=== PATIENT | male | born 1985 | race Caucasian/White ===

== ENCOUNTER 2017-10-01 09:20 | Emergency (ER) | payer OTHER ==
--- NOTE | 2017-10-01 10:36 | EDM.PDOC ---
ED HPI GENERAL MEDICAL PROBLEM - General Chief Complaint: ENT Problem Stated Complaint: Nasal congestion Time Seen by Provider: 10/01/17 09:45 Source of Information: Reports: Patient History Limitations: Reports: No Limitations - History of Present Illness INITIAL COMMENTS - FREE TEXT/NARRATIVE: 31 YO WM presents to ER complaining of chronic nasal congestion with facial pain and episode of dizziness that lasted for approx 30 seconds. Pt reports he has chronic nasal congestion but denies any allergies. Pt states when he blows his nose the mucous is blood tinged. Pt denies any fever/chills, no nausea/ vomiting, no chest pain or shortness of breath. Onset: Today Duration: Chronic Location: Reports: Face Quality: Reports: Ache Severity: Mild Improves with: Reports: None Worsens with: Reports: None Associated Symptoms: Denies: Cough, cough w sputum, Fever/Chills, Headaches, Nausea/Vomiting, Shortness of Breath - Related Data Allergies Allergy/AdvReac Type Severity Reaction Status Date / Time No Known Drug Allergies Allergy Cannot Verified 10/01/17 09:45 Remember Home Meds: Home Meds Amoxicillin/Clavulanate K [Augmentin 875-125 MG] 1 tab PO BID 9 Days #18 tablet 10/01/17 [Rx] Cetirizine [ZyrTEC] 10 mg PO DAILY #30 tab 10/01/17 [Rx] Oxymetazoline HCl [Afrin] 2 spray NS BID 3 Days spray 10/01/17 [Rx] Past Medical History Respiratory History: Reports: Asthma Neurological History: Reports: Migraines Psychiatric History: Reports: Anxiety, Depression, Panic Attack Dermatologic History: Reports: Other (See Below) Other Dermatologic History: chronic cellulitis due to chronic boils - Infectious Disease History Infectious Disease History: Reports: Chicken Pox - Past Surgical History Respiratory Surgical History: Reports: None Neurological Surgical History: Reports: None Dermatological Surgical History: Reports: None Social & Family History - Tobacco Use Smoking Status *Q: Current Every Day Smoker Years of Tobacco use: 13 Packs/Tins Daily: 0.5 Used Tobacco, but Quit: No Second Hand Smoke Exposure: Yes - Caffeine Use Caffeine Use: Reports: Coffee - Recreational Drug Use Recreational Drug Use: No ED ROS ENT - Review of Systems Review Of Systems: See Below Constitutional: Reports: No Symptoms HEENT: Reports: Nose Pain, Rhinitis, Sinus Problem. Denies: Ear Discharge, Ear Pain, Eye Discharge, Eye Pain, Throat Pain, Throat Swelling, Vertigo, Vision Change Respiratory: Reports: No Symptoms Cardiovascular: Reports: No Symptoms Endocrine: Reports: No Symptoms GI/Abdominal: Reports: No Symptoms : Reports: No Symptoms Musculoskeletal: Reports: No Symptoms Skin: Reports: No Symptoms Neurological: Reports: No Symptoms Psychiatric: Reports: No Symptoms Hematologic/Lymphatic: Reports: No Symptoms Immunologic: Reports: No Symptoms ED EXAM, ENT - Physical Exam Exam: See Below Exam Limited By: No Limitations General Appearance: Alert, WD/WN, No Apparent Distress Ears: Normal External Exam, Normal Canal, Hearing Grossly Normal, Normal TMs Nose: Nasal Tenderness. No: Active Bleeding Mouth/Throat: Normal Inspection, Normal Gums, Normal Lips, Normal Oropharynx, Normal Teeth Head: Atraumatic, Normocephalic, Sinus Tenderness (frontal sinus) Neck: Normal Inspection, Supple, Non-Tender, Full Range of Motion Respiratory/Chest: No Respiratory Distress, Lungs Clear, Normal Breath Sounds, No Accessory Muscle Use, Chest Non-Tender Cardiovascular: Normal Peripheral Pulses, Regular Rate, Rhythm, No Edema, No Gallop, No JVD, No Murmur, No Rub GI/Abdominal: Normal Bowel Sounds, Soft, Non-Tender, No Organomegaly, No Distention, No Abnormal Bruit, No Mass Back: Normal Inspection, Full Range of Motion Extremities: Normal Inspection, Normal Range of Motion, Non-Tender, No Pedal Edema, Normal Capillary Refill Neurological: Alert, Oriented, CN II-XII Intact, Normal Cognition, Normal Gait, Normal Reflexes, No Motor/Sensory Deficits Psychiatric: Normal Affect, Normal Mood Skin: Warm, Dry, Intact, Normal Color, No Rash Lymphatic: No Adenopathy Course - Vital Signs Last Recorded V/S: Last Vital Signs Temp 36.6 C 10/01/17 09:42 Pulse 75 10/01/17 09:42 Resp 18 10/01/17 09:42 BP 119/74 10/01/17 09:42 Pulse Ox 96 10/01/17 09:42 Departure - Departure Time of Disposition: 10:45 Disposition: Home, Self-Care 01 Condition: Good Clinical Impression: Sinusitis Qualifiers: Sinusitis location: frontal Chronicity: acute Recurrence: recurrent Qualified Code(s): J01.11 - Acute recurrent frontal sinusitis - Discharge Information Prescriptions: Amoxicillin/Clavulanate K [Augmentin 875-125 MG] 1 tab PO BID 9 Days #18 tablet Cetirizine [ZyrTEC] 10 mg PO DAILY #30 tab Oxymetazoline HCl [Afrin] 2 spray NS BID 3 Days spray Instructions: Sinusitis, Adult, [id number] Referrals: PCP,Unknown [Primary Care Provider] - Juan Antonio Cuenca MD [Physician] - - Assessment/Plan Assessment:: 1. Acute on Chronic Sinusitis Plan: 1. discharge home 2. augmentin 875mg PO BID x 10 days 3. zyrtec 10mg PO QD 4. Afrin NS BID x 3 days 5. follow up with PCP for further evaluation and treatment 6. Return to ER for worsening symptoms
[2017-10-01] MEDS ORDERED: Cetirizine 10 MG Tab PO SCH (10:45)
[2017-10-01] MEDS ORDERED: Amoxicillin/Clavulanate K 875-125 MG Tab PO SCH (10:45)
== END 2017-10-01 11:22 | disposition home or self-care (01) ==
LOC: KA.ED 09:20
DX: J01.11 Acute recurrent frontal sinusitis (principal); F17.210 Nicotine dependence, cigarettes, uncomplicated; Z79.899 Other long term (current) drug therapy
CPT/HCPCS: 99283; A9270-GY

== ENCOUNTER 2017-10-15 19:07 | Emergency (ER) | payer MEDICAID ==
--- NOTE | 2017-10-15 20:01 | EDM.PDOC ---
ED HPI GENERAL MEDICAL PROBLEM - General Chief Complaint: Gastrointestinal Problem Stated Complaint: BLOOD IN STOOL Time Seen by Provider: 10/15/17 19:54 Source of Information: Reports: Patient History Limitations: Reports: No Limitations - History of Present Illness INITIAL COMMENTS - FREE TEXT/NARRATIVE: Patient is a 31-year-old gentleman who presents to the emergency department this evening with a complaint of blood in stool and abdominal cramping. Patient states symptoms began yesterday and he had cramping prior to bowel movement, then noticed blood in toilet bowl and on toilet paper. Patient states he had several bowel movements today and also noticed blood on toilet paper. Abdominal cramping only occurs just prior to bowel movement. Patient denies fever, chest pain, shortness of breath, out of country travel, nausea, vomiting, or family members with similar symptoms. Patient had just finished Augmentin antibiotic regimen on 10/12 for upper respiratory infection, and was seen by Dr. Stinson on . Patient did not complain to Dr. Stinson about current issue at that time. Onset Date: 10/14/17 Duration: Day(s): Location: Reports: Abdomen Quality: Reports: Other (Cramping) Improves with: Reports: Other (Defecation) Worsens with: Reports: None Associated Symptoms: Reports: No Other Symptoms - Related Data Allergies Allergy/AdvReac Type Severity Reaction Status Date / Time No Known Drug Allergies Allergy Cannot Verified 10/15/17 19:31 Remember Home Meds: Home Meds Cetirizine [ZyrTEC] 10 mg PO DAILY #30 tab 10/01/17 [Rx] Oxymetazoline HCl [Afrin] 2 spray NS BID 3 Days spray 10/01/17 [Rx] Prednisone [IMW: predniSONE] 60 mg PO DAILY 10/15/17 [History] Past Medical History HEENT History: Reports: Sinusitis Respiratory History: Reports: Asthma Neurological History: Reports: Migraines Psychiatric History: Reports: ADHD, Anxiety, Depression, Panic Attack Dermatologic History: Reports: Cellulitis, Other (See Below) Other Dermatologic History: chronic cellulitis due to chronic boils - Infectious Disease History Infectious Disease History: Reports: Chicken Pox - Past Surgical History Respiratory Surgical History: Reports: None Neurological Surgical History: Reports: None Dermatological Surgical History: Reports: None Social & Family History - Tobacco Use Smoking Status *Q: Current Every Day Smoker Years of Tobacco use: 12 Packs/Tins Daily: 1 Used Tobacco, but Quit: No Tobacco Use Comment: Pt reports smoking 2-3 cigarettes daily. Second Hand Smoke Exposure: No - Caffeine Use Caffeine Use: Reports: Coffee - Recreational Drug Use Recreational Drug Use: No ED ROS GENERAL - Review of Systems Review Of Systems: ROS reveals no pertinent complaints other than HPI. Constitutional: Reports: No Symptoms HEENT: Reports: No Symptoms Respiratory: Reports: No Symptoms Cardiovascular: Reports: No Symptoms Endocrine: Reports: No Symptoms GI/Abdominal: Reports: Abdominal Pain, Hematochezia : Reports: No Symptoms Musculoskeletal: Reports: No Symptoms Skin: Reports: No Symptoms Neurological: Reports: No Symptoms Psychiatric: Reports: No Symptoms Hematologic/Lymphatic: Reports: No Symptoms Immunologic: Reports: No Symptoms ED EXAM, GI/ABD - Physical Exam Exam: See Below Exam Limited By: No Limitations General Appearance: Alert, WD/WN, No Apparent Distress Nose: Normal Inspection, Normal Mucosa, No Blood Throat/Mouth: Normal Inspection, Normal Oropharynx, No Airway Compromise Head: Atraumatic, Normocephalic Respiratory/Chest: No Respiratory Distress, Lungs Clear, Normal Breath Sounds, No Accessory Muscle Use, Chest Non-Tender Cardiovascular: Regular Rate, Rhythm, No Murmur GI/Abdominal Exam: Normal Bowel Sounds, Soft, Tender (Minimally periumbilical) Rectal (Males) Exam: Normal Exam, Normal Rectal Tone, Prostate Normal, Bloody Stool, Heme + Stool. No: Hemorrhoids Back Exam: Normal Inspection. No: CVA Tenderness (L), CVA Tenderness (R) Extremities: Normal Inspection, No Pedal Edema Neurological: Alert, Oriented, Normal Cognition Psychiatric: Normal Affect, Normal Mood Skin Exam: Warm, Dry, Intact, Normal Color, No Rash Lymphatic: No Adenopathy Course - Vital Signs Last Recorded V/S: Last Vital Signs Temp 98.6 F 10/15/17 19:41 Pulse 97 10/15/17 19:41 Resp 20 10/15/17 19:41 BP 130/84 10/15/17 19:41 Pulse Ox 96 10/15/17 19:41 - Orders/Labs/Meds Orders: Active Orders 24 hr Category Date Time Status Hemoccult [OCCULT BLOOD DIAGNOSTIC] [OP] Stat Lab 10/15/17 19:55 Ordered Labs: Laboratory Tests 10/15/17 10/15/17 10/15/17 Range/Units 19:57 19:57 19:57 WBC 7.0 (5.0-10.0) 10^3/uL RBC 4.72 (4.50-6.00) 10^6/uL Hgb 14.4 (13.0-17.0) g/dL Hct 43.4 (40.0-52.0) % MCV 91.8 (82.0-92.0) fL MCH 30.4 (27.0-31.0) pg MCHC 33.2 (32.0-36.0) g/dL RDW 12.6 (11.5-14.5) % Plt Count 239 (150-300) 10^3/uL MPV 8.2 (7.4-10.4) fL Neut % (Auto) 58.3 (50.0-70.0) % Lymph % (Auto) 30.6 (20.0-40.0) % [place] % (Auto) 7.5 (2.0-8.0) % Eos % (Auto) 3.3 H (1.0-3.0) % Baso % (Auto) 0.3 (0.0-1.0) % Neut # (Auto) 4.2 (2.5-7.0) 10^3/uL Lymph # (Auto) 2.1 (1.0-4.0) 10^3/uL [place] # (Auto) 0.5 (0.1-0.8) 10^3/uL Eos # (Auto) 0.2 (0.1-0.3) 10^3/uL Baso # (Auto) 0.0 (0.0-0.1) 10^3/uL PT 9.1 (8.9-11.4) SEC INR 0.9 (0.9-1.1) APTT 26.2 (20.8-31.2) SEC Sodium 141 (136-145) mmol/L Potassium 3.9 (3.3-5.3) mmol/L Chloride 104 (98-115) mmol/L Carbon Dioxide 27.6 (21.0-32.0) mmol/L BUN 17 (6-25) mg/dL Creatinine 0.94 (0.51-1.17) mg/dL Est Cr Clr Drug Dosing 111.17 mL/min Estimated GFR (MDRD) > 60 mL/min Glucose 95 (70-110) mg/dL Calcium 8.7 (8.7-10.3) mg/dL Total Bilirubin 0.3 (0.2-1.0) mg/dL AST 52 H (15-37) U/L ALT 201 H (12-78) U/L Alkaline Phosphatase 57 (46-116) IU/L Total Protein 7.6 (6.4-8.2) g/dL Albumin 4.22 (3.00-4.80) g/dL - Re-Assessments/Exams Free Text/Narrative Re-Assessment/Exam: 10/15/17 20:54 Patient afebrile, nontoxic appearing, vital signs stable. No abdominal pain at this time. Will have patient follow-up with Dr. Stinson tomorrow for consideration of further studies to evaluate source of bleeding. Departure - Departure Time of Disposition: 20:56 Disposition: Home, Self-Care 01 Condition: Good Clinical Impression: Rectal bleeding Gastrointestinal bleed Qualifiers: GI bleed type/associated pathology: unspecified gastrointestinal hemorrhage type Qualified Code(s): K92.2 - Gastrointestinal hemorrhage, unspecified - Discharge Information Instructions: Rectal Bleeding, [id number], Gastrointestinal Bleeding, Easy-to -Read Referrals: Xuan Rush MD [Primary Care Provider] - Forms: ED Department Discharge Additional Instructions: Follow-up with Dr. Stinson in one to 2 days. Return to emergency department sooner if symptoms continue or worsen. - My Orders Last 24 Hours: My Active Orders 10/15/17 19:55 Hemoccult [OCCULT BLOOD DIAGNOSTIC] [OP] Stat - Assessment/Plan Last 24 Hours: My Active Orders 10/15/17 19:55 Hemoccult [OCCULT BLOOD DIAGNOSTIC] [OP] Stat Assessment:: Rectal bleeding Plan: Follow-up with Dr. Stinson tomorrow
[2017-10-15 20:39] LABS: CHLORIDE,CL 104 mmol/L (98-115); SODIUM,NA 141 mmol/L (136-145)
== END 2017-10-15 21:00 | disposition home or self-care (01) ==
LOC: KA.ED 19:07
DX: K62.5 Hemorrhage of anus and rectum (principal); J45.909 Unspecified asthma, uncomplicated; F17.210 Nicotine dependence, cigarettes, uncomplicated; Z79.899 Other long term (current) drug therapy
CPT/HCPCS: 36415; 80053; 85025; 85610; 85730; 99284

== ENCOUNTER 2017-10-19 15:44 | Emergency (ER) | payer MEDICAID ==
--- NOTE | 2017-10-19 16:46 | EDM.PDOC ---
ED HPI GENERAL MEDICAL PROBLEM - General Chief Complaint: General Time Seen by Provider: 10/19/17 16:25 Source of Information: Reports: Patient History Limitations: Reports: No Limitations - History of Present Illness INITIAL COMMENTS - FREE TEXT/NARRATIVE: Patient presents with GI bleeding. This started one week ago and he has been evaluated here in the ER as well as by his PCP in the clinic within this week. Today he thinks the amount of bleeding is a little worse and was worried about it. He left work early after noticing this. He says he hasn't had a bowel movement today but just some bloody mucous. Rectal Pain Score (Numeric/FACES): 7 - Related Data Allergies Allergy/AdvReac Type Severity Reaction Status Date / Time No Known Drug Allergies Allergy Cannot Verified 10/19/17 15:51 Remember Home Meds: Home Meds Cetirizine [ZyrTEC] 10 mg PO DAILY #30 tab 10/01/17 [Rx] Past Medical History HEENT History: Reports: Sinusitis Respiratory History: Reports: Asthma Neurological History: Reports: Migraines Psychiatric History: Reports: ADHD, Anxiety, Depression, Panic Attack Dermatologic History: Reports: Cellulitis, Other (See Below) Other Dermatologic History: chronic cellulitis due to chronic boils - Infectious Disease History Infectious Disease History: Reports: Chicken Pox - Past Surgical History Respiratory Surgical History: Reports: None Neurological Surgical History: Reports: None Dermatological Surgical History: Reports: None Social & Family History - Tobacco Use Smoking Status *Q: Current Every Day Smoker Years of Tobacco use: 12 Packs/Tins Daily: 1 Used Tobacco, but Quit: No Second Hand Smoke Exposure: Yes - Caffeine Use Caffeine Use: Reports: Coffee, Energy Drinks, Tea - Recreational Drug Use Recreational Drug Use: Yes Drug Use in Last 12 Months: No Recreational Drug Type: Reports: Cocaine, Methamphetamine, Other (see below) Other Recreational Drug Type: pain pills ED ROS GENERAL - Review of Systems Review Of Systems: See Below Constitutional: Denies: Fever, Weakness HEENT: Reports: No Symptoms Respiratory: Denies: Shortness of Breath Cardiovascular: Denies: Chest Pain, Lightheadedness, Syncope GI/Abdominal: Reports: Bloody Stool. Denies: Abdominal Pain, Black Stool, Vomiting : Reports: No Symptoms Musculoskeletal: Reports: No Symptoms Skin: Denies: Cyanosis, Jaundice, Mottled, Pallor, Diaphoresis Neurological: Reports: No Symptoms Psychiatric: Denies: Agitation, Anxiety, Confusion Hematologic/Lymphatic: Denies: Anemia, Easy Bleeding (no bleeding/clotting disorders; no blood thinners) ED EXAM, GENERAL - Physical Exam Exam: See Below Exam Limited By: No Limitations General Appearance: Alert, WD/WN, No Apparent Distress Eye Exam: Bilateral Eye: EOMI, Normal Inspection, PERRL Ears: Normal External Exam, Hearing Grossly Normal Throat/Mouth: Normal Inspection, Normal Lips, Normal Voice, No Airway Compromise. No: Perioral Cyanosis Head: Atraumatic, Normocephalic Neck: Full Range of Motion Respiratory/Chest: No Respiratory Distress, Lungs Clear, Normal Breath Sounds, No Accessory Muscle Use Cardiovascular: Regular Rate, Rhythm, No Murmur Rectal (Males) Exam: Deferred (this was done a few days ago in the ER with results: positive hemoccult, normal prostate, no hemorrhoids.) Extremities: Normal Inspection, Normal Range of Motion, Normal Capillary Refill Neurological: Alert, Oriented, Normal Cognition, No Motor/Sensory Deficits Psychiatric: Normal Affect, Normal Mood Skin Exam: Warm, Dry, Intact, Normal Color, No Rash. No: Cyanosis, Pallor Course - Vital Signs Last Recorded V/S: Last Vital Signs Temp 97.2 F 10/19/17 15:46 Pulse 102 H 10/19/17 15:46 Resp 18 10/19/17 15:46 BP 140/91 H 10/19/17 15:46 Pulse Ox 98 10/19/17 15:46 - Orders/Labs/Meds Labs: Laboratory Tests 10/19/17 Range/Units 16:00 WBC 6.4 (5.0-10.0) 10^3/uL RBC 4.77 (4.50-6.00) 10^6/uL Hgb 14.5 (13.0-17.0) g/dL Hct 43.4 (40.0-52.0) % MCV 90.9 (82.0-92.0) fL MCH 30.3 (27.0-31.0) pg MCHC 33.4 (32.0-36.0) g/dL RDW 12.7 (11.5-14.5) % Plt Count 255 (150-300) 10^3/uL MPV 8.4 (7.4-10.4) fL Neut % (Auto) 60.7 (50.0-70.0) % Lymph % (Auto) 27.3 (20.0-40.0) % [place] % (Auto) 6.1 (2.0-8.0) % Eos % (Auto) 5.4 H (1.0-3.0) % Baso % (Auto) 0.5 (0.0-1.0) % Neut # (Auto) 4.0 (2.5-7.0) 10^3/uL Lymph # (Auto) 1.7 (1.0-4.0) 10^3/uL [place] # (Auto) 0.4 (0.1-0.8) 10^3/uL Eos # (Auto) 0.3 (0.1-0.3) 10^3/uL Baso # (Auto) 0.0 (0.0-0.1) 10^3/uL - Re-Assessments/Exams Free Text/Narrative Re-Assessment/Exam: 10/19/17 16:52 Discussed findings and expectations with patient. His colonoscopy is scheduled for 11/07/17. He doesn't have a car so cannot travel easily to another town for this and also needs to schedule two weeks in advance with his work. We offered to try to find options of getting a colonoscopy done sooner but he decided that keeping his current appointment will probably be best. I discussed with him that without knowing the source of his bleeding there isn't anything we can do today in the ER. I assured him that he is not anemic (hemoglobin is normal today). We discussed that he should return to ER if bleeding becomes severe or he is concerned that he might need a blood transfusion. Pt information on GI bleeding was also given to him at discharge. Pt discharged to home in stable condition. Departure - Departure Time of Disposition: 16:38 Disposition: Home, Self-Care 01 Condition: Good Clinical Impression: GI bleeding Qualifiers: GI bleed type/associated pathology: unspecified gastrointestinal hemorrhage type Qualified Code(s): K92.2 - Gastrointestinal hemorrhage, unspecified - Discharge Information Instructions: Gastrointestinal Bleeding, [id number] Referrals: Xuan Rush MD [Primary Care Provider] - Forms: ED Department Discharge Additional Instructions: 1. Drink 8 cups of water daily. 2. Call or follow up with your PCP if any questions, problems or worsening. 3. Keep the colonoscopy as scheduled as this should find the source of the bleeding.
== END 2017-10-19 16:45 | disposition home or self-care (01) ==
LOC: KA.ED 15:44
DX: K92.2 Gastrointestinal hemorrhage, unspecified (principal); J45.909 Unspecified asthma, uncomplicated; F17.210 Nicotine dependence, cigarettes, uncomplicated; Z79.899 Other long term (current) drug therapy
CPT/HCPCS: 36415; 85025; 99283

== ENCOUNTER 2017-11-07 13:51 | Day surgery (SDC) | payer MEDICAID ==
[~2017-11-07 13:51] MED LIST: Propofol 200 MG/20 ML SDV IV ONE; Propofol 200 MG/20 ML SDV ONE
[2017-11-07] MEDS ORDERED: Sodium Chloride 0.9% 5 ML Syringe FLUSH PRN (14:30)
[2017-11-07] MEDS ORDERED: Lactated Ringers 1,000 ML IV SCH (14:30)
--- NOTE | 2017-11-07 15:34 | PCM.PN ---
- General Info Date of Service: 11/07/17 - Review of Systems Systems Review Comment:: 32-year-old male referred for colonoscopy. He has a approximately 1 month history of intermittent rectal bleeding. There is been mucus associated with this sometimes. He is also been having some intermittent abdominal pain. He is medically stable to proceed today with no recent significant changes in his health status since his history and physical which is reviewed. I have discussed the proposed colonoscopy with the patient. Risks such as but not limited to bleeding and GI injury reviewed. He appears to understand and agrees to proceed. - Patient Data Vitals - Most Recent: Last Vital Signs Temp 98.1 F 11/07/17 14:22 Pulse 70 11/07/17 14:22 Resp 16 11/07/17 14:22 BP 110/74 11/07/17 14:22 Pulse Ox 96 11/07/17 14:22 Weight - Most Recent: 78.018 kg Med Orders - Current: Current Medications Lactated Ringer's (Ringers, Lactated) 1,000 mls @ 50 mls/hr IV ASDIRECTED AKIL Last Admin: 11/07/17 14:40 Dose: 50 mls/hr Sodium Chloride (Syrex Flush) 5 ml FLUSH Q8HR PRN PRN Reason: Keep Vein Open Discontinued Medications Propofol (Diprivan 20 Ml) Confirm Administered Dose 400 mg .ROUTE .STK-MED ONE Stop: 11/07/17 13:45 - Problem List Review Problem List Initiated/Reviewed/Updated: Yes - My Orders Last 24 Hours: My Active Orders 11/07/17 14:30 Patient to Empty Bladder [RC] ASDIRECTED Peripheral IV Care [RC] . DIRECTED Verify Patient Consent Obtain [RC] ASDIRECTED Lactated Ringers [Ringers, Lactated] 1,000 ml IV ASDIRECTED Sodium Chloride 0.9% [Syrex Flush] 5 ml FLUSH Q8HR PRN Peripheral IV Insertion Adult [OM.PC] Routine 11/07/17 Breakfast Nothing Per Oral Diet [DIET] - Assessment Assessment:: Rectal bleeding - Plan Plan:: Colonoscopy
--- NOTE | 2017-11-07 16:02 | PCM.OPNOTE ---
- General Post-Op/Procedure Note Date of Surgery/Procedure: 11/07/17 Operative Procedure(s): Colonoscopy Findings: Normal colon and terminal ileum Pre Op Diagnosis: Rectal bleeding Post-Op Diagnosis: Normal colon Anesthesia Technique: MAC Primary Surgeon: Shiva Dover Pathology: none Output, Urine Amount: 0 EBL in mLs: 0 Complications: None Condition: Good
--- NOTE | 2017-11-08 01:29 | OR ---
DATE OF SURGERY: 11/07/2017 SURGEON: Shiva Dover MD PREOPERATIVE DIAGNOSIS: Diagnosis rectal bleeding. POSTOPERATIVE DIAGNOSIS: Normal colon. OPERATION PERFORMED: Colonoscopy. INDICATIONS FOR SURGERY: This is a 32-year-old male, he has a history of rectal bleeding over the past 3 to 4 weeks. This has also been associated with some intermittent abdominal pain. FINDINGS: The patient's colon and rectum appeared normal. No signs of inflammation or abnormal appearing mucosa are seen during the exam. No significant hemorrhoids are identified. The terminal ilium also appeared normal. No areas showed any visible signs of inflammation. PROCEDURE: The patient was taken to the operating room. He was given intravenous sedation, and with him in the left lateral decubitus position, digital rectal exam was performed showing no rectal masses. The Olympus colonoscope was inserted into the rectum. The retroflexed examination of the rectal canal was performed. The scope was then carefully advanced under direct visualization through the entire length of the colon until the cecum was reached. Cecal acquisition was confirmed by noting the normal internal cecal anatomy including the appendiceal orifice and ileocecal valve. The ileocecal valve was cannulated and the terminal ilium was examined and also appeared normal. The scope was then slowly withdrawn sequentially re-examining the colonic segments until the entire colon and rectum had been fully examined. The scope was then removed, and the patient was taken from the operating room in satisfactory condition. ESTIMATED BLOOD LOSS: Zero. COMPLICATIONS: None. PROGNOSIS: Good. /[id number]/MODL
== END 2017-11-07 17:10 | disposition home or self-care (01) ==
LOC: KA.SDS 13:51
PROVIDERS: ATTEND Surgery
DX: K62.5 Hemorrhage of anus and rectum (principal); Z79.899 Other long term (current) drug therapy
CPT/HCPCS: J2704; J7120

== ENCOUNTER 2018-02-23 09:22 | Emergency (ER) | payer BC ==
--- NOTE | 2018-02-23 10:09 | EDM.PDOC ---
ED HPI GENERAL MEDICAL PROBLEM - General Chief Complaint: Genitourinary Problem Stated Complaint: UNKNOWN Time Seen by Provider: 02/23/18 09:32 Source of Information: Reports: Patient History Limitations: Reports: No Limitations - History of Present Illness INITIAL COMMENTS - FREE TEXT/NARRATIVE: Patient is a 32-year-old gentleman who presents to the emergency department this morning with a complaint of right testicular pain. Patient underwent vasectomy on 02/15/[address] Cuenca. Patient states that pain has gradually increased and was seen at the [facility] on Monday. Patient was given pain medicine at that time. Discomfort persists so he presented to the emergency department. Patient denies any recent trauma to that area, dysuria, abdominal pain, fever, nausea, vomiting, bowel changes. Onset: Gradual Duration: Day(s): Location: Reports: Other (Right testicle) Quality: Reports: Ache Severity: Moderate Improves with: Reports: None Worsens with: Reports: None Context: Reports: Other (Status post vasectomy) Associated Symptoms: Reports: No Other Symptoms - Related Data Allergies Allergy/AdvReac Type Severity Reaction Status Date / Time No Known Drug Allergies Allergy NKDA Verified 11/07/17 14:02 Home Meds: Home Meds . [No Known Home Meds] 11/07/17 [History] Past Medical History HEENT History: Reports: Sinusitis Respiratory History: Reports: Asthma Gastrointestinal History: Reports: GI Bleed Musculoskeletal History: Reports: Back Pain, Chronic, Fracture Neurological History: Reports: Concussion, Head Trauma, Migraines Psychiatric History: Reports: ADHD, Addiction, Depression, Learning Disability, Panic Attack, Psych Hospitalization(s), Suicide Attempt Dermatologic History: Reports: Cellulitis Other Dermatologic History: chronic cellulitis due to chronic boils - Infectious Disease History Infectious Disease History: Reports: Chicken Pox, Influenza - Past Surgical History Respiratory Surgical History: Reports: None Neurological Surgical History: Reports: None Dermatological Surgical History: Reports: None Social & Family History - Family History Family Medical History: Noncontributory - Caffeine Use Caffeine Use: Reports: Coffee ED ROS GENERAL - Review of Systems Review Of Systems: ROS reveals no pertinent complaints other than HPI. Constitutional: Reports: No Symptoms HEENT: Reports: No Symptoms Respiratory: Reports: No Symptoms Cardiovascular: Reports: No Symptoms Endocrine: Reports: No Symptoms GI/Abdominal: Reports: No Symptoms : Reports: Other (Right testicular pain and swelling) Musculoskeletal: Reports: No Symptoms Skin: Reports: No Symptoms Neurological: Reports: No Symptoms Psychiatric: Reports: No Symptoms Hematologic/Lymphatic: Reports: No Symptoms Immunologic: Reports: No Symptoms ED EXAM, RENAL/ - Physical Exam Exam: See Below Exam Limited By: No Limitations General Appearance: Alert, WD/WN, No Apparent Distress Throat/Mouth: Normal Inspection, Normal Oropharynx, No Airway Compromise Respiratory/Chest: No Respiratory Distress, Lungs Clear, Normal Breath Sounds Cardiovascular: Normal Peripheral Pulses, Regular Rate, Rhythm, No Murmur GI/Abdominal: Normal Bowel Sounds, Soft, Non-Tender (Male) Exam: Circumcised, Scrotal Swelling, Scrotum Tenderness (R), Testicular Tenderness (R), Other (Right scrotal mass proximal aspect above testicle. There is no erythema noted or involvement of left testicle.). No: Inguinal Lymphadenopathy Back Exam: Normal Inspection. No: CVA Tenderness (L), CVA Tenderness (R) Extremities: Normal Inspection Neurological: Alert, Oriented, Normal Cognition Psychiatric: Normal Affect, Normal Mood Skin Exam: Warm, Dry, Intact, Normal Color, No Rash Lymphatic: No Adenopathy Course - Re-Assessments/Exams Free Text/Narrative Re-Assessment/Exam: 02/23/18 10:08 Patient afebrile, nontoxic appearing, vital signs stable. [facility], was contacted and discussion with computer repair technician. Patient will leave the emergency department and be seen at [facility] for ultrasound of testicles at 1 p.m. today. Discussed situation with Petr Cesar, nurse practitioner, and he is aware of the patient and the situation. Departure - Departure Time of Disposition: 10:09 Disposition: Home, Self-Care 01 Condition: Fair Clinical Impression: Testicular pain, right, Status post vasectomy - Discharge Information Instructions: Vasectomy, Care After, Scrotal Hematoma Referrals: PCP,None [Primary Care Provider] - Forms: ED Department Discharge Additional Instructions: Follow-up at [facility] at 1 p.m. today. - Assessment/Plan Assessment:: Testicular pain status post vasectomy Plan: Follow-up at [facility] at 1 p.m. today
[2018-02-23] MEDS ORDERED: Acetaminophen/oxyCODONE 325-5 MG Tab PO ONE (10:18)
== END 2018-02-23 10:25 | disposition home or self-care (01) ==
LOC: KA.ED 09:22
DX: N50.811 Right testicular pain (principal); J45.909 Unspecified asthma, uncomplicated; Z98.52 Vasectomy status
CPT/HCPCS: 99283; A9270-GY

== ENCOUNTER 2021-04-01 15:05 | Emergency (ER) | payer BC, OTHER ==
--- NOTE | 2021-04-01 16:05 | EDM.PDOC ---
ED HPI GENERAL MEDICAL PROBLEM - General Chief Complaint: Lower Extremity Injury/Pain Stated Complaint: DROPPED 50 LBS OF METAL ON PINKY TOE Time Seen by Provider: 04/01/21 15:27 Source of Information: Reports: Patient History Limitations: Reports: No Limitations - History of Present Illness INITIAL COMMENTS - FREE TEXT/NARRATIVE: Patient presents with pain in right small toe after dropping a heavy metal grate on it at work. He was wearing steel-toed boots but the grate landed just proximal to that. Denies any other injuries. Right Toe-Little Pain Score (Numeric/FACES): 8 - Related Data Allergies Allergy/AdvReac Type Severity Reaction Status Date / Time stitches dissolvable Allergy Cannot Uncoded 04/01/21 15:33 Remember Home Meds: Home Meds Venlafaxine HCl [Venlafaxine ER] 225 mg PO DAILY 04/01/21 [History] Past Medical History HEENT History: Reports: Impaired Vision, Sinusitis Respiratory History: Reports: Asthma Gastrointestinal History: Reports: GI Bleed Musculoskeletal History: Reports: Back Pain, Chronic, Fracture Neurological History: Reports: Concussion, Head Trauma, Migraines Psychiatric History: Reports: ADHD, Addiction, Depression, Learning Disability, Panic Attack, Psych Hospitalization(s), Suicide Attempt Dermatologic History: Reports: Cellulitis Other Dermatologic History: chronic cellulitis due to chronic boils - Infectious Disease History Infectious Disease History: Reports: Chicken Pox, Influenza - Past Surgical History Respiratory Surgical History: Reports: None Male Surgical History: Reports: Vasectomy Other Male Surgeries/Procedures: vasectomy 02/17/18 and is now having increased pain and swelling Neurological Surgical History: Reports: None Dermatological Surgical History: Reports: None Social & Family History - Family History Family Medical History: No Pertinent Family History - Tobacco Use Tobacco Use Status *Q: Current Every Day Tobacco User Years of Tobacco use: 10 Packs/Tins Daily: 0.5 - Caffeine Use Caffeine Use: Reports: Soda, Tea - Recreational Drug Use Recreational Drug Use: No Review of Systems - Review of Systems Review Of Systems: Comprehensive ROS is negative, except as noted in HPI. ED EXAM, GENERAL - Physical Exam Exam: See Below Exam Limited By: No Limitations General Appearance: Alert, WD/WN, No Apparent Distress Eye Exam: Bilateral Eye: EOMI, Normal Inspection, PERRL Ears: Normal External Exam, Hearing Grossly Normal Nose: Normal Inspection, No Blood Throat/Mouth: Normal Inspection, Normal Lips, Normal Voice, No Airway Compromise Head: Atraumatic, Normocephalic Neck: Normal Inspection, Full Range of Motion Respiratory/Chest: No Respiratory Distress, Lungs Clear, Normal Breath Sounds Cardiovascular: Regular Rate, Rhythm, No Murmur GI/Abdominal: No Distention Back Exam: Normal Inspection, Full Range of Motion Extremities: Normal Range of Motion, Normal Capillary Refill, Other (Right small toe has moderate ecchymosis of the middle phalanx but no deformity. AROM is good. Distal CMS is intact. Palpation reveals tenderness but no crepitus or instability.) Neurological: Alert, Oriented, Normal Cognition, No Motor/Sensory Deficits Psychiatric: Normal Affect, Normal Mood Skin Exam: Warm, Dry, Intact, Normal Color, No Rash Course - Vital Signs Last Recorded V/S: Last Vital Signs Temp 97.1 F 04/01/21 15:32 Pulse 95 04/01/21 15:10 Resp 20 04/01/21 15:10 BP 131/84 04/01/21 15:10 Pulse Ox 95 04/01/21 15:10 - Orders/Labs/Meds Orders: Active Orders 24 hr Category Date Time Status Foot 2V Rt [CR] Stat Exams 04/01/21 15:15 Ordered - Re-Assessments/Exams Free Text/Narrative Re-Assessment/Exam: 04/01/21 16:33 Xrays show no evidence of fracture or dislocation. Discussed findings and treatment plan with patient. His boots have a fairly rigid sole and have the steel-reinforced toebox so will be adequate protection for him. He will follow up with his PCP if not improving in a week. Discharged to home in stable condition. Departure - Departure Time of Disposition: 15:52 Disposition: Home, Self-Care 01 Condition: Good Clinical Impression: Contusion of fifth toe, right Qualifiers: Encounter type: initial encounter Qualified Code(s): S90.121A - Contusion of right lesser toe(s) without damage to nail, initial encounter - Discharge Information Referrals: Xuan Rush MD [Primary Care Provider] - Additional Instructions: Wear a protective shoe and put weight on it as tolerated. Follow up with PCP if not improving in a week. You can use Ibuprofen and/or Tylenol as directed for pain if needed. Sepsis Event Note (ED) - Focused Exam Vital Signs: Vital Signs Temp Pulse Resp BP Pulse Ox 04/01/21 15:32 97.1 F 04/01/21 15:10 96.7 F L 95 20 131/84 95 - My Orders Last 24 Hours: My Active Orders 04/01/21 15:15 Foot 2V Rt [CR] Stat - Assessment/Plan Last 24 Hours: My Active Orders 04/01/21 15:15 Foot 2V Rt [CR] Stat
--- NOTE | 2021-04-01 16:19 | CR ---
[id number] RAD/RAD Foot Right 2V Exam: RAD Foot Right 2V Indication:RIGHT PINKY TOE INJURY. Comparison: No prior imaging for comparison. Discussion/Impression: No acute fracture or dislocation. Possible chronic avulsion fracture along the medial base of the 1st digit distal phalanx at the interphalangeal articulation. Examination is otherwise unremarkable. Eladio Roche MD 04/01/21 [id number] Thank you for allowing us to participate in the care of your patient.
== END 2021-04-01 16:15 | disposition home or self-care (01) ==
LOC: KA.ED 15:05
DX: S90.121A Contusion of right lesser toe(s) without damage to nail, initial encounter (principal); J45.909 Unspecified asthma, uncomplicated; Z72.0 Tobacco use; Z91.048 Other nonmedicinal substance allergy status; W20.8XXA Other cause of strike by thrown, projected or falling object, initial encounter; Y92.89 Other specified places as the place of occurrence of the external cause; Y99.0 Civilian activity done for income or pay
CPT/HCPCS: 73620-RT; 99283; 99283-25

== ENCOUNTER 2021-05-24 20:49 | Emergency (ER) | payer BC, OTHER ==
[2021-05-24] MEDS ORDERED: Lidocaine 1% with EPINEPHrine 1:100,000 10 ML MDV ONE (21:36)
[2021-05-24] MEDS ORDERED: Bacitracin/Neomycin/Polymyxin B Oint 28.4 GM Tube ONE (21:45)
[2021-05-24] MEDS ORDERED: Lidocaine 1% with EPINEPHrine 1:100,000 10 ML MDV INJECT ONE (21:48)
[2021-05-24] MEDS ORDERED: Bacitracin/Neomycin/Polymyxin B Oint 28.4 GM Tube TOP ONE (21:48)
--- NOTE | 2021-05-24 21:49 | EDM.PDOC ---
ED HPI GENERAL MEDICAL PROBLEM - General Chief Complaint: General Stated Complaint: something in forehead Time Seen by Provider: 05/24/21 21:44 Source of Information: Reports: Patient History Limitations: Reports: No Limitations - History of Present Illness INITIAL COMMENTS - FREE TEXT/NARRATIVE: Patient presents emergency room for possible foreign object into the skin of his forehead above his right eyebrow. Patient was working hitting a piece of metal with hammerand a small chip of metal flew and hit his forehead. There is a small area where there is a puncture wound and some slight swelling and painful with touch. He was convinced by his to come here to be seen to make sure there is no piece of metal inside the wound as it continues to swell up. There has been no drainage or spreading erythremia. He was wearing his glasses denies any eye pain or foreign object in his eye sensation. - Related Data Allergies Allergy/AdvReac Type Severity Reaction Status Date / Time stitches dissolvable Allergy Cannot Uncoded 05/24/21 20:55 Remember Home Meds: Home Meds Venlafaxine HCl [Venlafaxine ER] 225 mg PO DAILY 04/01/21 [History] Past Medical History HEENT History: Reports: Impaired Vision, Sinusitis Respiratory History: Reports: Asthma Gastrointestinal History: Reports: GI Bleed Musculoskeletal History: Reports: Back Pain, Chronic, Fracture Neurological History: Reports: Concussion, Head Trauma, Migraines Psychiatric History: Reports: ADHD, Addiction, Depression, Learning Disability, Panic Attack, Psych Hospitalization(s), Suicide Attempt Dermatologic History: Reports: Cellulitis Other Dermatologic History: chronic cellulitis due to chronic boils - Infectious Disease History Infectious Disease History: Reports: Chicken Pox, Influenza, Novel Coronavirus - Past Surgical History Respiratory Surgical History: Reports: None GI Surgical History: Reports: Appendectomy, Hernia Repair/Other Male Surgical History: Reports: Vasectomy Neurological Surgical History: Reports: None Dermatological Surgical History: Reports: None Social & Family History - Family History Family Medical History: No Pertinent Family History - Caffeine Use Caffeine Use: Reports: Soda, Tea ED ROS GENERAL - Review of Systems Review Of Systems: See Below Skin: Reports: Other (wound of skin. in forehead ) ED EXAM, GENERAL - Physical Exam Exam: See Below Exam Limited By: No Limitations General Appearance: Alert, WD/WN, No Apparent Distress Nose: Normal Inspection Throat/Mouth: Normal Inspection Head: Facial Swelling, Facial Tenderness Neck: Normal Inspection, Supple, Non-Tender Neurological: Oriented, Normal Reflexes Psychiatric: Normal Affect, Normal Mood Skin Exam: Warm, Dry, Intact. No: Erythema ED GENERAL MEDICAL PROCEDURES - Additional/Other Procedure(s) Other (Free Text) Procedure(s): The anterior and lateral x-ray of the skull reveals a metal piece inside of the skin at the same area as the injury and the site swelling. This confirmed that there is a foreign body in it. Patient insisted wanted take it out right away. Verbal consent and also written consent was obtained. Patient wanted me to attempt to see if there is anything inside the small area of swelling and to move it if possible. It is on his forehead and subcutaneous tissue there is a bit of swelling and painful and feels like he can move something around in it. Risk and benefits discussed in thorough with the patient. Patient provided consent. I put Betadine on the wound allowed to dry place 1 mill liter of lidocaine with epi for anesthesia. using sterile gloves and with a sterile tweezers as well with sterile technique, I was able to carefully inserted a tweezers at the puncture wound which was already open. I was able to feel that the metal piece hit against a tweezers and carefully grab it and remove it. The small piece of metal was removed entirely. 1 lateral film obtained which revealed that the piece was removed successfully and there is no retained foreign body in the xray image. Patient tolerated very well. Did apply some antibiotic ointment and sent him home some to use as well. wound care instructions provided to patient. Return precaution discussed in thorough with patient. Course - Vital Signs Last Recorded V/S: Last Vital Signs Temp 96.2 F L 05/24/21 20:57 Pulse 53 L 05/24/21 20:57 Resp 16 05/24/21 20:57 BP 115/95 H 05/24/21 20:57 Pulse Ox 95 05/24/21 20:57 - Orders/Labs/Meds Orders: Active Orders 24 hr Category Date Time Status Skull Less 4V [CR] Routine Exams 05/24/21 21:32 Ordered Skull Less 4V [CR] Routine Exams 05/24/21 21:47 Ordered Meds: Medications Discontinued Medications Generic Name Dose Route Start Last Admin Trade Name Freq PRN Reason Stop Dose Admin Lidocaine/Epinephrine Confirm 05/24/21 21:36 05/24/21 21:49 Lidocaine 1% With Epinephrine 1:100,000 10 Ml Mdv Administered 05/24/21 21:37 Not Given Dose 10 ml .ROUTE .STK-MED ONE Lidocaine/Epinephrine 1 ml 05/24/21 21:48 05/24/21 21:49 Lidocaine 1% With Epinephrine 1:100,000 10 Ml Mdv INJECT 05/24/21 21:49 1 ml ONETIME ONE Administration Neomycin/Polymyxin/Bacitracin Confirm 05/24/21 21:45 05/24/21 21:49 Bacitracin/Neomycin/Polymyxin B Oint 28.4 Gm Tube Administered 05/24/21 21:46 Not Given Dose 28.4 gm .ROUTE .STK-MED ONE Neomycin/Polymyxin/Bacitracin 1 gm 05/24/21 21:48 05/24/21 21:49 Bacitracin/Neomycin/Polymyxin B Oint 28.4 Gm Tube TOP 05/24/21 21:49 1 applic ONETIME ONE Administration Departure - Departure Time of Disposition: 21:45 Disposition: Home, Self-Care 01 Condition: Good Clinical Impression: Foreign body (FB) in soft tissue, Foreign body in skin - Discharge Information *PRESCRIPTION DRUG MONITORING PROGRAM REVIEWED*: No *COPY OF PRESCRIPTION DRUG MONITORING REPORT IN PATIENT EMILIANO: No Instructions: Sliver Removal, Care After Referrals: Petr Cesar, SOFTWARE QUALITY MANAGER [Primary Care Provider] - Forms: ED Department Discharge Additional Instructions: Continue to put antibiotic ointment on it 3 times a day keep it covered and c lean. Monitor for signs and symptoms of infection. Return for new or spreading redness drainage or pain. Sepsis Event Note (ED) - Evaluation Sepsis Screening Result: No Definite Risk - Focused Exam Vital Signs: Vital Signs Temp Pulse Resp BP Pulse Ox 05/24/21 20:57 96.2 F L 53 L 16 115/95 H 95 - My Orders Last 24 Hours: My Active Orders 05/24/21 21:32 Skull Less 4V [CR] Routine 05/24/21 21:47 Skull Less 4V [CR] Routine - Assessment/Plan Last 24 Hours: My Active Orders 05/24/21 21:32 Skull Less 4V [CR] Routine 05/24/21 21:47 Skull Less 4V [CR] Routine
--- NOTE | 2021-05-25 09:57 | CR ---
[id number] RAD/RAD Skull Less than 4V EXAM: RAD Skull Less than 4V INDICATION: METAL OBJECT STRUCK FACE ABOVE RIGHT EYEBROW COMPARISON: None. DISCUSSION: Superficial to the right frontal calvarium there is a 7 x 2 mm metallic foreign body just above the level of the right orbit. This area is marked with a paperclip. The facial bones are otherwise unremarkable. Sinuses appear normally aerated. IMPRESSION: 1. 7 x 2 mm metallic foreign body right forehead just superior to the orbit. Aleksander Kirk MD 05/25/21 [id number] Thank you for allowing us to participate in the care of your patient.
--- NOTE | 2021-05-25 09:57 | CR ---
[id number] RAD/RAD Skull Less than 4V EXAM: RAD Skull Less than 4V INDICATION: POST FOREIGN BODY REMOVAL COMPARISON: Radiographs earlier same date. DISCUSSION: Interval removal of the previously described metallic foreign body from above the right orbit. No residual foreign body is identified. IMPRESSION: 1. Successful removal of a metallic foreign body from the right forehead. Aleksander Kirk MD 05/25/21 [id number] Thank you for allowing us to participate in the care of your patient.
== END 2021-05-24 21:55 | disposition home or self-care (01) ==
LOC: KA.ED 20:49
DX: S00.85XA Superficial foreign body of other part of head, initial encounter (principal); J45.909 Unspecified asthma, uncomplicated; Z86.16 Personal history of COVID-19; Z91.048 Other nonmedicinal substance allergy status; Z79.899 Other long term (current) drug therapy; W22.8XXA Striking against or struck by other objects, initial encounter
CPT/HCPCS: 70250; 99283-25

== ENCOUNTER 2022-12-20 23:35 | Emergency (ER) | payer MEDICAID ==
[2022-12-20] MEDS: Ketorolac 30 MG/ML SDV IM ONE (23:55)
[2022-12-21] MEDS: Ketorolac 30 MG/ML SDV ONE
[2022-12-21] MEDS: traMADol 50 MG Tab PO ONE (00:34)
[2022-12-21] MEDS: Amoxicillin 500 MG Cap PO ONE (00:34)
== END 2022-12-21 00:50 | disposition home or self-care (01) ==
LOC: KA.ED 23:35
DX: K08.89 Other specified disorders of teeth and supporting structures (principal); J45.909 Unspecified asthma, uncomplicated; Z91.048 Other nonmedicinal substance allergy status; Z86.16 Personal history of COVID-19; Z72.0 Tobacco use
CPT/HCPCS: 96372; 99282; A9270-GY; J1885

== ENCOUNTER 2023-01-08 00:27 | Emergency (ER) | payer MEDICAID ==
[2023-01-08] MEDS ORDERED: Amoxicillin 500 MG Cap PO ONE (01:12)
[2023-01-08] MEDS ORDERED: Acetaminophen/HYDROcodone 325-10 MG Tab PO ONE (01:12)
== END 2023-01-08 01:26 | disposition home or self-care (01) ==
LOC: KA.ED 00:27
DX: K02.9 Dental caries, unspecified (principal); J45.909 Unspecified asthma, uncomplicated; F17.210 Nicotine dependence, cigarettes, uncomplicated; Z86.16 Personal history of COVID-19; Z88.8 Allergy status to other drugs, medicaments and biological substances
CPT/HCPCS: 99282; 99283; A9270-GY

== ENCOUNTER 2023-02-14 13:42 | Emergency (ER) | payer MEDICAID | END 2023-02-14 14:07 | disposition home or self-care (01) | LOC: KA.ED 13:42 | DX: K08.89 Other specified disorders of teeth and supporting structures (principal); J45.909 Unspecified asthma, uncomplicated; Z86.16 Personal history of COVID-19; Z91.048 Other nonmedicinal substance allergy status | CPT/HCPCS: 99282; 99283 ==

== ENCOUNTER 2024-09-10 19:38 | Emergency (ER) | payer MEDICAID ==
[2024-09-10] MEDS: Doxycycline Monohydrate 100 MG Cap PO ONE (20:15)
[2024-09-10] MEDS: Ketorolac 10 MG Tab PO ONE (20:16)
[2024-09-10 21:51] VITALS: PULSE 94
[2024-09-10 21:52] VITALS: BP 137/100
== END 2024-09-10 20:31 | disposition home or self-care (01) ==
LOC: KA.ED 19:38
DX: L03.211 Cellulitis of face (principal); J45.909 Unspecified asthma, uncomplicated; Z86.16 Personal history of COVID-19; Z90.49 Acquired absence of other specified parts of digestive tract; Z91.048 Other nonmedicinal substance allergy status; Z79.899 Other long term (current) drug therapy
CPT/HCPCS: 99283; 99284; A9270-GY

== ENCOUNTER 2025-05-27 12:00 | Emergency (ER) | payer MEDICAID, OTHER ==
[2025-05-27 12:38] LABS: BASOPHILS ABSOLUTE AUTO 0.02 10^3/uL (0.00-0.10); BASOPHILS PERCENT AUTO 0.3 % (0.0-1.0); EOSINOPHILS ABSOLUTE AUTO 0.16 10^3/uL (0.10-0.30); EOSINOPHILS PERCENT AUTO 2.7 % (1.0-3.0); IMMATURE GRAN ABSOLUTE AUTO 0.00 10^3/uL (0.00-0.04); IMMATURE GRAN PERCENT AUTO 0.0 % (0.0-0.4); LYMPHOCYTES ABSOLUTE AUTO 1.75 10^3/uL (1.00-4.00); LYMPHOCYTES PERCENT AUTO 29.2 % (20.0-40.0); MEAN PLATELET VOLUME 9.9 fL (7.4-10.4); MONOCYTES ABSOLUTE AUTO 0.33 10^3/uL (0.10-0.80); MONOCYTES PERCENT AUTO 5.5 % (2.0-8.0); NEUTROPHILS ABSOLUTE AUTO 3.73 10^3/uL (2.50-7.00); NEUTROPHILS PERCENT AUTO 62.3 % (50.0-70.0); PLATELET COUNT,PLT 260 10^3/uL (150-400); RED BLOOD CELL COUNT 5.28 10^6/uL (4.50-6.00); RED CELL DISTRIBUTION WIDTH 12.7 % (11.5-14.5); WHITE BLOOD CELL COUNT,WBC 5.99 10^3/uL (5.00-10.00)
[2025-05-27 13:45] LABS: APPEARANCE,URINE CLEAR (CLEAR); GLUCOSE,URINE NEGATIVE (NEGATIVE); OCCULT BLOOD,URINE NEGATIVE (NEGATIVE)
[2025-05-27 14:00] LABS: EPITHELIAL CELLS,URINE RARE /LPF
== END 2025-05-27 14:15 | disposition home or self-care (01) ==
LOC: KA.ED 12:02
DX: G89.29 Other chronic pain (principal); N50.812 Left testicular pain; E66.9 Obesity, unspecified; Z98.52 Vasectomy status; Z91.048 Other nonmedicinal substance allergy status; Z86.16 Personal history of COVID-19; Z87.891 Personal history of nicotine dependence; Z68.44 Body mass index [BMI] 60.0-69.9, adult
CPT/HCPCS: 36415; 81001; 85025; 99284

== ENCOUNTER 2025-07-28 21:12 | Emergency (ER) | payer OTHER ==
[2025-07-28 21:18] VITALS: BP 154/95
[2025-07-28 21:21] VITALS: PULSE 88
[2025-07-28 22:13] LABS: BASOPHILS ABSOLUTE AUTO 0.05 10^3/uL (0.00-0.10); BASOPHILS PERCENT AUTO 0.5 % (0.0-1.0); EOSINOPHILS ABSOLUTE AUTO 0.30 10^3/uL (0.10-0.30); EOSINOPHILS PERCENT AUTO 3.1 % (1.0-3.0); IMMATURE GRAN ABSOLUTE AUTO 0.01 10^3/uL (0.00-0.04); IMMATURE GRAN PERCENT AUTO 0.1 % (0.0-0.4); LYMPHOCYTES ABSOLUTE AUTO 1.87 10^3/uL (1.00-4.00); LYMPHOCYTES PERCENT AUTO 19.6 % (20.0-40.0); MEAN PLATELET VOLUME 10.5 fL (7.4-10.4); MONOCYTES ABSOLUTE AUTO 0.50 10^3/uL (0.10-0.80); MONOCYTES PERCENT AUTO 5.2 % (2.0-8.0); NEUTROPHILS ABSOLUTE AUTO 6.83 10^3/uL (2.50-7.00); NEUTROPHILS PERCENT AUTO 71.5 % (50.0-70.0); PLATELET COUNT,PLT 250 10^3/uL (150-400); RED BLOOD CELL COUNT 4.98 10^6/uL (4.50-6.00); RED CELL DISTRIBUTION WIDTH 12.0 % (11.5-14.5); WHITE BLOOD CELL COUNT,WBC 9.56 10^3/uL (5.00-10.00)
[2025-07-28 22:18] LABS: ALANINE AMINOTRANSFERASE,ALT 27.0 U/L (14-63); ASPARTATE AMNIOTRANSFERASE,AST 11.0 U/L (15-37); BILIRUBIN TOTAL 0.4 mg/dL (0.2-1.0); BLOOD UREA NITROGEN,BUN 10.0 mg/dL (7-18); CARBON DIOXIDE,CO2 26.3 mmol/L (21.0-32.0); CHLORIDE,CL 103.0 mmol/L (98-107); CREATININE 0.98 mg/dL (0.51-1.17); EST CRCL DRUG DOSING (CG) 95.55 mL/min; ESTIMATED GFR 101.0 mL/min (>=60); GLUCOSE RANDOM 120.0 mg/dL (70-140); POTASSIUM,K 4.0 mmol/L (3.5-5.1); PROTEIN TOTAL,TP 7.5 g/dL (6.4-8.2); SODIUM,NA 141.0 mmol/L (136-145)
== END 2025-07-28 22:45 | disposition home or self-care (01) ==
LOC: KA.ED 21:12
DX: L03.011 Cellulitis of right finger (principal); I10 Essential (primary) hypertension; F17.200 Nicotine dependence, unspecified, uncomplicated; Z86.16 Personal history of COVID-19; Z91.048 Other nonmedicinal substance allergy status; Z79.899 Other long term (current) drug therapy
CPT/HCPCS: 36415; 80053; 85025; 99283